=== PATIENT | male | born 1990 | race Caucasian/White ===

== ENCOUNTER 2019-07-29 20:56 | Emergency (ER) | payer OTHER ==
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
[2019-07-29 21:28] LABS: #Eosinphils 0.1 thou/uL (0.0-0.7); #Lymphocytes 2.4 thou/uL (1.20-3.40); #Monocytes 0.4 thou/uL (0.11-0.59); #Neutrophils 2.2 thou/uL (1.40-6.50); %Basophils 0.6 % (0.0-1.0); %Eosinophils 1.6 % (0.0-10.0); %Lymphocytes 46.7 % (21.0-51.0); %Monocytes 7.4 % (0.0-10.0); %Neutrophils 43.7 % (42.0-75.0); Hemoglobin 15.5 g/dL (14.0-18.0); Mean Corpuscular HGB CONC 32.2 g/dL (32.0-36.0); Mean Corpuscular Hemoglobin 28.5 pg (27.0-31.0); Mean Corpuscular Volume 88.6 fL (78.0-98.0); Mean Platelet Volume 7.5 fL (7.4-10.4); Platelet Count 214 thou/uL (130-400); RBC Distribution Width 11.4 % (11.5-14.5); Red Blood Cell (RBC) Count 5.43 mill/uL (4.70-6.10); White Blood Cell (WBC) Count 5.1 thou/uL (4.8-10.8)
[2019-07-29 21:44] LABS: ALT (SGPT) 22 U/L (8-55); AST (SGOT) 19 U/L (5-34); Albumin 4.5 g/dL (3.5-5.0); Alkaline Phosphatase 96 U/L (40-110); Anion Gap 12 mmol/L (10-20); BUN (Urea Nitrogen) 16 mg/dL (8.9-20.6); Bilirubin, Total 0.5 mg/dL (0.2-1.2); Calc. Creatinine Clearance 0 mL/min (70-130); Calcium 9.5 mg/dL (7.8-10.44); Carbon Dioxide 28 mmol/L (22-29); Chloride 102 mmol/L (98-107); Estimated GFR-MDRD 87; Glucose 87 mg/dL (70-105); Lipase 17 U/L (8-78); Potassium 4.1 mmol/L (3.5-5.1); Protein, Total 7.5 g/dL (6.0-8.3); Sodium 138 mmol/L (136-145)
[2019-07-30 11:57] LABS: SARS-CoV-2 MS2 Positive; SARS-CoV-2 N Gene Negative; SARS-CoV-2 S Gene Negative; SARS-CoV-2 orf1ab Negative
--- NOTE | 2019-08-10 16:11 | EKG ---
Test Reason : Blood Pressure : / mmHG Vent. Rate : 053 BPM Atrial Rate : 053 BPM P-R Int : 156 ms QRS Dur : 088 ms QT Int : 406 ms P-R-T Axes : 051 089 048 degrees QTc Int : 380 ms Sinus bradycardia Possible Left atrial enlargement Borderline ECG Confirmed by PALMER PATEL ([id number]), book editor JAYNE HARRINGTON ([id number]) on 08/10/2019 4:11:00 PM Referred By: Confirmed By:PALMER PATEL
== END 2019-07-30 00:29 ==
LOC: ERS 20:56
DX: R07.89 Other chest pain (principal); Z18.9 Retained foreign body fragments, unspecified material
CPT/HCPCS: 71045; 80053; 83690; 84484; 85025; 87635; 93005; U0003